=== PATIENT | female | born 2000 | race Caucasian/White ===

== ENCOUNTER 2022-05-30 12:14 | Emergency (ER) | payer OTHER, SELFPAY ==
[2022-05-30 12:24] VITALS: BP 127/75; PULSE 70; RESP 16; TEMP 36.6; O2SAT 99
[2022-05-30 12:36] VITALS: BP 118/70; PULSE 70
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
== END 2022-05-30 14:09 | disposition home or self-care (01) ==
PROVIDERS: Emergency Provider Emergency Medicine; PCP Pediatrics
DX: S13.4XXA Sprain of ligaments of cervical spine, initial encounter (principal); V47.6XXA Car passenger injured in collision with fixed or stationary object in traffic accident, initial encounter; Y93.9 Activity, unspecified; Y92.410 Unspecified street and highway as the place of occurrence of the external cause; Y99.9 Unspecified external cause status
CPT/HCPCS: 99282; 99283

== ENCOUNTER 2023-02-26 11:55 | Emergency (ER) | payer OTHER, SELFPAY ==
[2023-02-26 12:32] VITALS: BP 127/67; PULSE 70; RESP 16; TEMP 36.4; O2SAT 98; BMI 22.2
--- NOTE | 2023-02-26 12:37 | ECG_ITS ---
Test Reason : CP Blood Pressure : / mmHG Vent. Rate : 071 BPM Atrial Rate : 071 BPM P-R Int : 124 ms QRS Dur : 104 ms QT Int : 362 ms P-R-T Axes : 059 053 027 degrees QTc Int : 393 ms Normal sinus rhythm with sinus arrhythmia Normal ECG When compared with ECG of 28-NOV-2017 13:10, Premature atrial complexes are no longer Present Referred By: Generic ED Physician Electronically Signed By:Chente Vee
[2023-02-26 12:51] LABS: MANUAL DIFF FLAG NO
[2023-02-26 12:52] LABS: Basophils Absolute Auto 0.1 X10*3/uL (0.0-0.2); Basophils Percent Auto 0.6 % (0-2); Eosinophils Absolute Auto 0.2 X10*3/uL (0.0-0.4); Eosinophils Percent Auto 2.7 % (0-4); Hematocrit 44.9 % (37.0-47.0); Hemoglobin 14.3 g/dl (12.0-16.0); Imm Gran Abs Auto 0.03 X10*3/uL (0.00-0.03); Imm Gran Pct Auto 0.4 % (0.0-0.4); Lymphocytes Absolute Auto 2.6 X10*3/uL (1.2-4.9); Lymphocytes Percent Auto 30.5 % (20-40); Mean Corpuscular HGB Conc 31.8 g/dl (31.0-35.0); Mean Corpuscular Hemoglobin 28.6 pg (27.0-33.0); Mean Corpuscular Volume 89.8 fL (80.0-98.0); Mean Platelet Volume 9.6 fL (9.4-12.3); Monocytes Absolute Auto 0.5 X10*3/uL (0.1-1.2); Monocytes Percent Auto 6.2 % (2-11); Neutrophils Percent Auto 59.6 % (45-73); Platelet Count 250 X10*3/uL (160-400); Red Cell Distribution Width 13.4 % (11.0-16.0); White Blood Count 8.4 X10*3/uL (4.8-10.8)
[2023-02-26 14:02] LABS: Troponin-I High Sensitivity < 2.7 ng/L (<3.5-17.0)
[2023-02-26 14:09] LABS: Anion Gap 14 (12-20); Blood Urea Nitrogen 8 mg/dL (9-16); Calcium 10.4 mg/dL (8.4-10.2); Carbon Dioxide 25 mmol/L (22-29); Chloride 106 mmol/L (96-108); Creatinine Clr Calc Pharmacy 85.2; Estimated Glomerular Filt Rate > 60; Glucose Random 52 mg/dL (60-115); Potassium 4.5 mmol/L (3.3-5.1); Sodium 140 mmol/L (135-145)
--- NOTE | 2023-02-26 15:32 | MHC.EDTECH ---
POC 85. RN Flakito aware. Pt sent back to waiting room.
[2023-02-26 15:35] LABS: Glucose, Whole Blood 85 mg/dL (60-115)
== END 2023-02-26 20:01 | disposition left against medical advice (07) ==
PROVIDERS: Emergency Provider Emergency Medicine; PCP Pediatrics
DX: R07.9 Chest pain, unspecified (principal)
CPT/HCPCS: 36415; 80048; 82947; 84484; 85025; 93005; 99283